=== PATIENT | male | born 1945 | race African-American/Black ===

== ENCOUNTER 2017-02-04 04:09 | Emergency (ER) | payer OTHER, BC ==
[~2017-02-04] VITALS: Ht 182.9 cm; Wt 72.6 kg
--- NOTE | ~2017-02-04 | EKG ---
[address] [address] ELECTROCARDIOGRAM REPORT Name: JUAN ANTONIO GONZALEZ [id number] Admission: 02/04/17 Attend Phys: Discharge: 02/04/17 Date of : 47 Report #: [id number] THIS REPORT FOR: //name// [facility] ED Test Date: 2017-02-04 Test Time: 04:35:49 Pat Name: JUAN ANTONIO GONZALEZ Department: Room: Gender: M Corporate Scheduler: jamel : 1945 Requested By: Joe Rocha Order Number: [id number] MD: Yakov Neves Measurements Intervals [place] Rate: 36 P: 87 [place]: 270 QRS: 104 QRSD: 170 T: 18 QT: 605 QTc: 469 Interpretive Statements Sinus bradycardia Prolonged [place] interval RBBB and LPFB Abnrm T, consider ischemia, anterolateral lds No previous ECG available for comparison Electronically Signed On 02-09-2017 21:37:22 CDT by Yakov Neves [email or web address] <ELECTRONICALLY SIGNED> By: Yakov Neves MD 02/09/17 [id number] [id number] Yakov Neves MD /VY
[2017-02-04 04:38] VITALS: BP 60/78
[2017-02-04 04:40] LABS: HEMATOCRIT 37.3 % (42.0-52.0); HEMOGLOBIN 11.5 gm/dL (14.0-18.0); MCH 32.5 pg (26.0-34.0); MCHC 30.8 g/dL (28.0-37.0); MCV 105.7 fL (80.0-100.0); RBC 3.53 mil/uL (4.50-6.00); RDW 17.4 % (10.5-14.5); WBC 9.5 thou/uL (4.0-11.0)
[2017-02-04 04:42] LABS: ANION GAP 24 mmol/L (7-16); BUN 33 mg/dL (7-18); CALCIUM 8.3 mg/dL (8.5-10.1); CHLORIDE 102 mmol/L (98-107); CO2 21 mmol/L (21-32); CREATININE 6.2 mg/dL (0.7-1.3); GLUCOSE 112 mg/dL (74-106); POTASSIUM 4.6 mmol/L (3.5-5.1); SODIUM 147 mmol/L (136-145)
[2017-02-04 04:45] LABS: MANUAL DIFF YES
[2017-02-04 04:54] LABS: APTT 33.8 Seconds (24.5-32.8); INR 1.5; PROTIME 15.1 Seconds (9.3-11.4)
[2017-02-04 04:59] LABS: ACETAMINOPHEN < 2 ug/mL (10-30); ALBUMIN 2.5 g/dL (3.4-5.0); ALKALINE PHOSPHATASE 142 U/L (46-116); CK-MB MASS 7.4 ng/mL (<0.5-3.6); MAGNESIUM 2.4 mg/dL (1.8-2.4); SALICYLATE 3.9 mg/dL (2.8-20.0); SGOT 62 U/L (15-37); SGPT 20 U/L (30-65); TOTAL BILIRUBIN 0.7 mg/dL (<0.1-1.0); TOTAL PROTEIN 6.3 g/dL (6.4-8.2)
[2017-02-04 05:01] LABS: TROPONIN-I 1.36 ng/mL (<0.04-0.07)
[2017-02-04 05:20] LABS: NT-PRO BRAIN NAT PEPTIDE > 70000 pg/mL (<300)
[2017-02-04 05:42] LABS: ABSOLUTE NEUTROPHILS 6.8 thou/uL (1.4-8.2); METAMYELOCYTES 11 %; NUCLEATED RBCS 3 /100WBC; TOTAL CELL COUNT 100
[2017-02-04 05:43] LABS: PLATELET COUNT 151 thou/uL (150-400)
[2017-02-04 05:44] LABS: ANISOCYTOSIS 1+; LARGE PLATELETS SEVERAL
== END 2017-02-04 05:10 ==
LOC: ER 04:09
PROVIDERS: Emergency Medicine
DX: I46.9 Cardiac arrest, cause unspecified (principal); I12.0 Hypertensive chronic kidney disease with stage 5 chronic kidney disease or end stage renal disease; E11.22 Type 2 diabetes mellitus with diabetic chronic kidney disease; N18.6 End stage renal disease; Z99.2 Dependence on renal dialysis; T38.3X5A Adverse effect of insulin and oral hypoglycemic [antidiabetic] drugs, initial encounter; Y92.89 Other specified places as the place of occurrence of the external cause